=== PATIENT | female | born 1935 | race Caucasian/White ===

== ENCOUNTER 2021-07-09 15:15 | Emergency (ER) | payer MEDICARE, BC ==
[~2021-07-09] VITALS: Ht 157.5 cm; Wt 58.0 kg
--- NOTE | 2021-07-09 15:32 | RAD ---
CT Head W/O Contrast: History: Reason: ALTERED MENTAL STATUS, NOT RESPONDING / Spl. Instructions: / History: Comparison: none Axial images were obtained without contrast. There is moderate diffuse atrophy. There is no mass effect, extraaxial fluid collections or hydrocep halus. There is no gross bleed. Minimal, patchy periventricular and subcortical white matter hypoatt enuation is seen. There is no focal loss of flower-white matter distinction to suggest acute ischemia, i.e. stroke. Impression: No acute findings. RS Compliance Statement: One or more of the following individualized dose reduction techniques were utilized for this examinat ion: 1. Automated exposure control 2. Adjustment of the mA and/or kV according to patient size 3. Use of iterative reconstruction technique Electronically signed by: Hiram Taveras III, MD (07/09/2021 3:30 PM) [facility]
--- NOTE | 2021-07-09 16:09 | PHYS DOC ---
Past History Additional Past Medical Histor: CHRISTIN, (MELONIE BRAUN MD) Past Surgical History: Appendectomy, Cholecystectomy, Hysterectomy (MELONIE BRAUN MD) General Adult EDM: Chief Complaint: ABDOMINAL PAIN HPI: HPI: Patient is a 86-year-old female brought in by EMS after syncopal episode of the restroom. 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 Patient states that her lab results were good as she went to celebrate with her daughter for lunch. Patient states she thinks she ate more than she probably should have. Also says she had a monica. Patient states that she had been having nausea all day because she was nervous about seeing her doctor about her test results are good to be. Patient states she started having some low abdominal pain earlier today and when she got home went to the restroom and had diarrhea. Patient states she does not member anything else until she woke up on the floor. Patient had had 1 episode of emesis on her self is unsure how long she was out. Per daughter the total time she could have been out would be approximately 1 minute. She was initially confused. Patient states that she felt sweaty and had darkness to her vision that is resolved now. States it lasted maybe 10 minutes. She states she members being confused that feels like she is alert and oriented now. Patient states her pain was in her low abdomen and little bit worse on the left. (MELONIE BRAUN MD) Review of Systems: Review of Systems: All other systems within normal limits except for as noted in the HPI (MELONIE BRAUN MD) Allergies: Allergies: Allergies Coded Allergies Type Severity Reaction Last Updated Verified No Known Drug Allergies 07/09/21 No (MELONIE BRAUN MD) Physical Exam: PE: Constitutional: Well developed, well nourished, no acute distress, non-toxic appearance. [] HENT: Normocephalic, atraumatic, bilateral external ears normal, nose normal. [] Eyes: PERRLA, conjunctiva normal, no discharge. [] Neck: No rigidity, supple, no stridor. [] Cardiovascular: Regular rate and rhythm, brisk cap refill [] Lungs & Thorax: Non labored symmetric respirations, no tachypnea or respiratory distress [] Abdomen: Soft, nondistended. Skin: Warm, dry, no erythema, no rash. [] Back: Unremarkable Extremities: No deformities, range of motion grossly intact, no lower extremity edema [] Neurologic: Alert and oriented X 3, no focal deficits noted. [] Psychologic: Affect normal, judgement normal, mood normal. [] (MELONIE BRAUN MD) Current Patient Data: Vital Signs: Vital Signs Date Time Temp Pulse Resp B/P (MAP) Pulse Ox O2 Delivery O2 Flow Rate FiO2 07/09/21 15:51 97.7 97 16 119/69 (86) 96 Room Air (MELONIE BRAUN MD) EKG: EKG: Sinus rhythm, heart rate 90 bpm, left axis deviation, no ST elevation or depression, no ectopy, normal intervals. [] (MELONIE BRAUN MD) Radiology/Procedures: Radiology/Procedures: [address] [id number] IMAGING REPORT Signed PATIENT: RUDDY ESPANA ACCOUNT: [id number] : 1935 LOCATION: ER AGE: 86 SEX: F EXAM STATUS: PRE ER ORD. PHYSICIAN: MELONIE BRAUN MD REASON: ALTERED MENTAL STATUS, NOT RESPONDING PROCEDURE: CT CODE STROKE HEAD WO CT Head W/O Contrast: History: Reason: ALTERED MENTAL STATUS, NOT RESPONDING / Spl. Instructions: / History: Comparison: none Axial images were obtained without contrast. There is moderate diffuse atrophy. There is no mass effect, extraaxial fluid collections or hydrocephalus. There is no gross bleed. Minimal, patchy periventricular and subcortical white matter hypoattenuation is seen. There is no focal loss of flower-white matter distinction to suggest acute ischemia, i.e. stroke. Impression: No acute findings. PQRS Compliance Statement: One or more of the following individualized dose reduction techniques were utilized for this examination: 1. Automated exposure control 2. Adjustment of the mA and/or kV according to patient size 3. Use of iterative reconstruction technique Electronically signed by: Domo Felton III, MD (07/09/2021 3:30 PM) [facility] DICTATED AND SIGNED BY: DOMO FELTON III, MD DATE: 07/09/21 [id number] CC: COLE CRAMER MD; MELONIE BRAUN MD ~MTH0 0 [] (MELONIE BRAUN MD) Heart Score: C/O Chest Pain: No HEART Score for Chest Pain: HEART Score for Chest Pain Response (Comments) Value History Slighlty/Non-Suspicious 0 ECG Normal 0 Age > 65 2 Risk Factors 1 or 2 Risk Factors 1 Troponin < Normal Limit 0 Total 3 Risk Factors: Risk Factors: DM, Current or recent (<one month) smoker, HTN, HLP, family history of CAD, obesity. Risk Scores: Score 0 - 3: 2.5% MACE over next 6 weeks - Discharge Home Score 4 - 6: 20.3% MACE over next 6 weeks - Admit for Clinical Observation Score 7 - 10: 72.7% MACE over next 6 weeks - Early Invasive Strategies (MELONIE BRAUN MD) Course & Med Decision Making: Course & Med Decision Making Pertinent Labs and Imaging studies reviewed. (See chart for details) Pending UA at shift change. [] (MELONIE BRAUN MD) Course & Med Decision Making The patient's urinalysis is negative for infection. She is stable for discharge at this time. (CHANNING PENDLETON DO) Dragon Disclaimer: Dragon Disclaimer: This electronic medical record was generated, in whole or in part, using a voice recognition dictation system. (MELONIE BRAUN MD) Departure Departure: Impression: Primary Impression: Syncope Disposition: HOME / SELF CARE / HOMELESS Condition: STABLE Referrals: COLE CRAMER MD (PCP) Patient Instructions: Syncope, [id number] MELONIE BRAUN MD Jul 09, 2021 16:09 CHANNING PENDLETON DO Jul 09, 2021 19:02
[2021-07-09 16:28] LABS: BASO % 0 % (0-3); EOS % 1 % (0-3); HEMATOCRIT 32.6 % (36.0-47.0); HEMOGLOBIN 11.5 g/dL (12.0-15.5); LYMPH # 1.4 x10^3/uL (1.0-4.8); LYMPH % 72 % (24-48); MEAN CORPUSCULAR HEMOGLOBIN 32 pg (25-35); MEAN CORPUSCULAR HGB CONC 35 g/dL (31-37); MEAN CORPUSCULAR VOLUME 89 fL (79-100); MONO # 0.3 x10^3/uL (0.0-1.1); MONO % 13 % (0-9); NEUT # 0.3 x10^3uL (1.8-7.7); NEUT % 14 % (31-73); PLATELET COUNT 162 x10^3/uL (140-400); RED BLOOD COUNT 3.64 x10^6/uL (3.50-5.40); RED CELL DISTRIBUTION WIDTH 15.1 % (11.5-14.5)
[2021-07-09 16:42] LABS: CALCIUM 9.9 mg/dL (8.5-10.1); CREATININE 0.9 mg/dL (0.6-1.0); GFR 59.4; POTASSIUM 3.9 mmol/L (3.5-5.1)
[2021-07-09 16:54] LABS: ALBUMIN 3.6 g/dL (3.4-5.0); MAGNESIUM 2.2 mg/dL (1.8-2.4); PHOSPHORUS 2.9 mg/dL (2.6-4.7); TOTAL BILIRUBIN 0.5 mg/dL (0.2-1.0); TOTAL PROTEIN 7.3 g/dL (6.4-8.2)
--- NOTE | 2021-07-09 16:57 | EKG ---
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
[2021-07-09] MEDS: IV NORMAL SALINE 1,000ML 1,000 ML IV ONE (17:09)
[2021-07-09 17:46] LABS: % BANDS 1 % (0-9); % EOS 1 % (0-5); % LYMPHS 75 % (24-48); % MONOS 14 % (0-10); % SEGS 9 % (35-66)
[2021-07-09 17:48] LABS: PLT ESTIMATE ADEQUATE (ADEQUATE)
[2021-07-09 18:29] VITALS: BP 136/47
[2021-07-09 18:45] LABS: BILIRUBIN,URINE NEG (NEG); CLARITY,URINE CLEAR; COLOR,URINE YELLOW; GLUCOSE,URINE NEG (NEG)
[2021-07-09 18:46] LABS: BACTERIA,URINE FEW /HPF (0-FEW); NITRITE,URINE NEG (NEG); RBC,URINE 0 /HPF (0-2); SQUAMOUS EPITHELIAL CELL,UR FEW /LPF; UROBILINOGEN,URINE 0.2 mg/dL (0.2 mg/dL)
== END 2021-07-09 19:18 | disposition home or self-care (01) ==
LOC: ER 15:15
DX: R55 Syncope and collapse (principal); R19.7 Diarrhea, unspecified; R11.0 Nausea; Z90.49 Acquired absence of other specified parts of digestive tract; Z90.89 Acquired absence of other organs; Z90.710 Acquired absence of both cervix and uterus
CPT/HCPCS: 36415; 70450; 80053; 81001; 83605; 83735; 83880; 84100; 84484; 85007; 85025; 93005; 96360; 99285; G0480; J7030; 99283

== ENCOUNTER → 2021-07-11 | Outpatient (CLI) | payer MEDICARE, BC ==
[2021-07-09 18:29] VITALS: BP 136/47
--- NOTE | 2021-07-11 10:34 | RAD ---
CT of the abdomen and pelvis without contrast. 07/11/2021 10:10 AM Indication: Reason: GENERALIZED ABD PAIN X 2 DAYS / Spl. Instructions: / History: Comparison Study: CT of the abdomen and pelvis from 2002 (printed film, scaned to PACS) Technique: Multidetector CT imaging of the abdomen pelvis is obtained without administration of contr ast. Findings: The visualized bilateral lung bases are clear. The bilateral adrenal glands, and pancreas have a normal noncontrast enhanced appearance. Changes of prior granulomatous disease noted within the liver and spleen. The spleen is mildly enlarged measuri ng 13 cm longitudinally. The appearance seems similar to prior CT scan from April 2003. The bladder is grossly unremarkable. There is no significant free fluid or free air in the abdomen or pelvis. The re is no evidence of bowel obstruction or significant inflamatory change. The appendix is well visual ized and grossly normal. There is no acute osseous abnormality identified. Impression: 1. No evidence of acute intra-abdominal abnormality 2. Mild splenomegaly, similar to exam from 2002 CT DOSING PQRS STATEMENT: One or more of the following individualized dose reduction techniques were utilized for this examinat ion: 1. Automated exposure control 2. Adjustment of the mA and/or kV according to patient size 3. Use of iterative reconstruction technique Electronically signed by: Girish Lopes MD (07/11/2021 10:31 AM) [id number]
== END ==
LOC: CT 10:00
PROVIDERS: ATTEND Family Medicine
DX: R16.1 Splenomegaly, not elsewhere classified (principal)
CPT/HCPCS: 74176